=== PATIENT | male | born 1930 | race Hispanic/Latino ===

== ENCOUNTER 2018-01-25 09:38 | Emergency (ER) | payer MEDICARE ==
[2018-01-25 09:58] VITALS: BMI 30.8
--- NOTE | 2018-01-25 11:05 | ED PDOC ---
Arrival/HPI - General Chief Complaint: Abdominal Pain Historian: Patient - History of Present Illness Narrative History of Present Illness (Text): 01/25/18 11:01 87yo male with pmhx of hypertension who present with complaint of RLQ abdominal pain with associated nausea since this morning. States it started with nausea and then pain started. Notes pain is intermittent and achy. No relieving or exacerbating factors. Spoke with Dr. Sheets and was referred to ED. Never had a Colonoscopy. Denies vomiting, diarrhea, constipation, fever, chills, chest pain, melena, hematemesis, sick contact, any other complaint. Past Medical History - Provider Review Nursing Documentation Reviewed: Yes - Psychiatric Hx Substance Use: No - Surgical History Hx Appendectomy: Yes - Anesthesia Hx Anesthesia: Yes Hx Anesthesia Reactions: No Hx Malignant Hyperthermia: No Family/Social History - Physician Review Nursing Documentation Reviewed: Yes Family/Social History: Unknown Family HX Smoking Status: Never Smoked Hx Alcohol Use: No Hx Substance Use: No Allergies/Home Meds Allergies/Adverse Reactions: Allergies No Known Allergies Allergy (Verified 04/24/13 11:15) Home Medications: Home Meds Medication Instructions Recorded Confirmed Nebivolol [Bystolic] 5 mg PO DAILY 04/24/13 04/24/13 Review of Systems - Physician Review All systems were reviewed & negative as marked: Yes - Review of Systems Constitutional: Normal Eyes: Normal ENT: Normal Respiratory: Normal Cardiovascular: Normal Gastrointestinal: Abdominal Pain, Nausea. absent: Constipation, Diarrhea, Vomiting, Hematochezia, Hematemesis Genitourinary Male: Normal Musculoskeletal: Normal Skin: Normal Neurological: Normal Endocrine: Normal Hemo/Lymphatic: Normal Psychiatric: Normal Physical Exam Vital Signs Reviewed: Yes Vital Signs Temp Pulse Resp BP Pulse Ox 01/25/18 09:58 97.5 F L 76 16 170/95 H 95 Temperature: Afebrile Blood Pressure: Normal Pulse: Regular Respiratory Rate: Normal Appearance: Positive for: Well-Appearing, Non-Toxic, Comfortable Pain Distress: None Mental Status: Positive for: Alert and Oriented X 3 - Systems Exam Head: Present: Atraumatic, Normocephalic Pupils: Present: PERRL Extroacular Muscles: Present: EOMI Conjunctiva: Present: Normal Mouth: Present: Moist Mucous Membranes Neck: Present: Normal Range of Motion Respiratory/Chest: Present: Clear to Auscultation, Good Air Exchange. No: Respiratory Distress, Accessory Muscle Use Cardiovascular: Present: Regular Rate and Rhythm, Normal S1, S2. No: Murmurs Abdomen: Present: Tenderness (Mild RLQ tenderness), Normal Bowel Sounds, Other (Soft). No: Distention, Peritoneal Signs, Rebound, Guarding, McBurney's Point Tender, Rovsing's Sign Present Back: Present: Normal Inspection Upper Extremity: Present: Normal Inspection. No: Cyanosis, Edema Lower Extremity: Present: Normal Inspection. No: Edema Neurological: Present: GCS=15, CN II-XII Intact, Speech Normal Skin: Present: Warm, Dry, Normal Color. No: Rashes Psychiatric: Present: Alert, Oriented x 3, Normal Insight, Normal Concentration Medical Decision Making ED Course and Treatment: 01/25/18 12:21 87yo male who present with complaint of RLQ abdominal pain with nausea since this morning. Labs Abdominal/Pelvic CT Lactic acid Will reassess Pt remain comfortable in ED. Notes that he is not currently in pain in ED. They is no indication for pain medication at this time. Lab was unremarkable UA - Moderate blood. No infection Abdominal/Pelvic CT IMPRESSION: There is a 6 mm obstructing stone at the right UVJ. There is moderate hydronephrosis and perinephric stranding around the right kidney. Result was DW the pt and he was offered admission. Patient however declined admission. States he can't stay in the hospital. Notes that his friend's is tonight and he plans to go. He also reports that he is comfortable and not in pain. Dr. Sheets paged at 1220 to MA. 01/25/18 12:[address] sheets at 1228 and he recommends that pt be DC home with analgesia and advised to drink plenty of water and he will call pt himself and f/u with him. states he will refer him to a Urologist. PT was DC home with flomax and percocet. Instructed to drink plenty of fluid and f/u with a urologist - RAD Interpretation Radiology Orders: 01/25/18 09:59 ABD & PELVIS IV CONTRAST ONLY [CT] Stat - Medication Orders Current Medication Orders: Discontinued Medications Famotidine (Pepcid) 20 mg IVP STAT STA Stop: 01/25/18 09:59 Disposition/Present on Arrival - Present on Arrival Any Indicators Present on Arrival: No History of DVT/PE: No History of Uncontrolled Diabetes: No Urinary Catheter: No History of Decub. Ulcer: No History Surgical Site Infection Following: None - Disposition Have Diagnosis and Disposition been Completed?: Yes Diagnosis: Nephrolithiasis Disposition: HOME/ ROUTINE Disposition Time: 12:30 Patient Plan: Discharge Patient Problems: Current Active Problems Problem Status Onset Nephrolithiasis Acute Condition: STABLE Discharge Instructions (ExitCare): Kidney Stones in Adults Additional Instructions: Follow up with your Doctor/Urologist Drink plenty of fluid and take medication as directed Return to ED for worsening pain Prescriptions: oxyCODONE/Acetaminophen [Percocet 5/325 mg Tab] 1 tab PO Q6 #8 tab Tamsulosin [Flomax] 0.4 mg PO DAILY #3 cap Referrals: Eugene Sheets MD [Family Provider] - Follow up with primary Ric Cesar MD [Staff Provider] - Follow up with primary Forms: [employer] (Tongan)
[2018-01-25 11:17] LABS: BASO # 0.01 K/mm3 (0.0-2.0); BASO % 0.1 % (0.0-3.0); EOS # 0.1 (0.0-0.7); EOS % 1.2 % (1.5-5.0); GRAN # 7.62 (1.4-6.5); GRAN % 76.8 % (50.0-68.0); LYMPH # 1.5 (1.2-3.4); LYMPH % 15.2 % (22.0-35.0); MEAN CELL VOLUME 90.8 fl (80.0-105.0); MEAN CORPUSCULAR HEMOGLOBIN 30.8 pg (25.0-35.0); MEAN CORPUSCULAR HGB CONC 33.9 g/dl (31.0-37.0); MEAN PLATELET VOLUME 8.6 fl (7.0-11.0); MONO # 0.7 (0.1-0.6); MONO % 6.7 % (1.0-6.0); RBC 4.55 10^6/uL (3.5-6.1); RED CELL DISTRIBUTION WIDTH 13.5 % (11.5-14.5); WHITE BLOOD COUNT 9.9 10^3/uL (4.5-11.0)
[2018-01-25 11:24] LABS: INR 1.05; PARTIAL THROMBOPLASTIN TIME 28.9 Seconds (25.1-36.5); PROTHROMBIN TIME 12.1 SECONDS (9.4-12.5)
[2018-01-25 11:27] LABS: ALBUMIN 3.8 g/dL (3.0-4.8); ALT/SGPT 20 U/L (7-56); AMYLASE 78 U/L (35-125); AST/SGOT 21 U/L (17-59); BLOOD UREA NITROGEN 18 mg/dL (7-21); CALCIUM 8.9 mg/dL (8.4-10.5); GFR NON-AFRICAN AMERICAN 57; LIPASE 65 U/L (23-300)
[2018-01-25 11:38] LABS: TROPONIN I < 0.01 ng/mL; URINE BILIRUBIN NEGATIVE (NEGATIVE); URINE BLOOD LARGE (NEGATIVE); URINE GLUCOSE (UA) NEGATIVE (NEGATIVE); URINE LEUKOCYTE ESTERASE NEGATIVE Leu/uL (NEGATIVE); URINE PROTEIN NEGATIVE mg/dL (<30 mg/dL); URINE UROBILINOGEN 0.2 E.U./dL (<1 E.U./dL)
[2018-01-25] MEDS ORDERED: Iohexol 350 MG/100 ML VIAL ONE (11:38)
[2018-01-25 11:40] LABS: URINE APPEARANCE CLEAR (CLEAR); URINE COLOR YELLOW (YELLOW)
[2018-01-25 11:48] LABS: URINE BACTERIA MANY (NEG); URINE RBC 25 - 30 /hpf (0-2)
[2018-01-25 12:13] VITALS: TEMP 97.8
--- NOTE | 2018-01-25 12:18 | CT ---
Date of service: 01/25/2018 PROCEDURE: CT Abdomen and Pelvis with contrast HISTORY: RLQ abdominal pain COMPARISON: None. TECHNIQUE: Contrast dose: 100 cc of Omni 350 Radiation dose: Total exam DLP = 997.94 mGy-cm. This CT exam was performed using one or more of the following dose reduction techniques: Automated exposure control, adjustment of the mA and/or kV according to patient size, and/or use of iterative reconstruction technique. FINDINGS: LOWER THORAX: There is a large hiatal hernia measuring 8 cm. LIVER: Unremarkable. No gross lesion or ductal dilatation. GALLBLADDER AND BILE DUCTS: Unremarkable. PANCREAS: Unremarkable. No gross lesion or ductal dilatation. SPLEEN: Unremarkable. ADRENALS: Unremarkable. No mass. KIDNEYS AND URETERS: There is a 6 mm obstructing stone at the right UVJ. There is moderate hydronephrosis and perinephric stranding around the right kidney. VASCULATURE: Unremarkable. No aortic aneurysm. Aortic calcifications are seen BOWEL: Unremarkable. No obstruction. No gross mural thickening. APPENDIX: Normal appendix. PERITONEUM: Unremarkable. No free fluid. No free air. LYMPH NODES: Unremarkable. No enlarged lymph nodes. BLADDER: Mild mural thickening. Possible cystitis REPRODUCTIVE: Normal size prostate. Prostatic calcifications. BONES: No acute fracture. OTHER FINDINGS: None. IMPRESSION: There is a 6 mm obstructing stone at the right UVJ. There is moderate hydronephrosis and perinephric stranding around the right kidney.
[2018-01-25 12:55] VITALS: BP 156/93; PULSE 69; RESP 16; O2SAT 97
--- NOTE | 2018-01-25 18:33 | CARD ---
APPROVED REPORT Date of service: 01/25/2018 EKG Measurement Heart [id number] <Conclusion> Normal sinus rhythm Normal ECG
== END 2018-01-25 12:43 | disposition home or self-care (01) ==
LOC: ED 09:38
DX: N20.0 Calculus of kidney (principal); I10 Essential (primary) hypertension
CPT/HCPCS: 74177; 80053; 81001; 82150; 82550; 83605; 83615; 83690; 84484; 85025; 85610; 85730; 87040; 93005; 96374; 99283; Q9967